=== PATIENT | female | born 1965 | race Caucasian/White ===

== ENCOUNTER 2025-01-14 22:10 | Emergency (ER) | payer MEDICARE, OTHER, SELFPAY ==
--- NOTE | 2025-01-14 22:18 | DI.RAD.S_ITS ---
PROCEDURE: XR WRIST LT MIN 3V INDICATIONS: pain fall TECHNIQUE: 4 views of the wrist were acquired. COMPARISON: None. FINDINGS: Bones: No fractures or dislocations. No suspicious bony lesions. Scaphoid appears intact. Scapholunate interval is maintained. Background degenerative changes of the left hand and wrist. Soft tissues: No suspicious soft tissue calcifications. Mild soft tissue swelling of the left hand and wrist. IMPRESSION: Soft tissue swelling of the left hand and wrist without underlying fracture or dislocation. If there is persistent clinical concern for occult fracture given adequate mechanism of injury, consider repeat imaging in 10-14 days. Immobilization as clinically indicated. Dictated by: Edil Álvarez M.D. on 01/14/2025 at 22:46 Approved by: Edil Álvarez M.D. on 01/14/2025 at 22:47
[2025-01-14 22:29] VITALS: BP 202/99; PULSE 85; RESP 24; TEMP 36.6; O2SAT 98; BMI 37.3
--- NOTE | 2025-01-14 22:31 | ED.UPPEXIN ---
HPI - Extremity Injury (Upper) General Chief Complaint: Extremity Injury, Upper Stated Complaint: fall /LT side pain Time Seen by Provider: 01/14/25 22:13 History of Present Illness HPI narrative: Patient is a 60-year-old female presenting today after ground level fall yesterday. She reports he tripped on a curb falling with her hands stretched out. She did hit her nose, no significant head injury no loss of consciousness not on antiplatelet or anticoagulation medication. She tried to be seen yesterday after her fall at another facility and said she waited for more than 2 hours and decided to leave. However tonight she is having on going left hand pain and swelling. She feels like it goes all the way down from her neck. She took both Aleve and ibuprofen prior to arrival. She has tried Tylenol at home as well he reports nothing is helping her pain. Related Data Home Medications ?Medication ?Instructions ?Recorded ?Confirmed mecobalamin (vitamin B12) PO 01/17/21 01/17/21 multivit [id number] 186 PO 01/17/21 01/17/21 [Hair, Skin and Nails Advanced] multivitamin [Daily Multivitamin] PO 01/17/21 01/17/21 zinc acetate PO 01/17/21 01/17/21 Previous Rx's ?Medication ?Instructions ?Recorded cyclobenzaprine 5 mg tablet 5 mg PO TID PRN muscle spasm #10 01/14/25 tabs hydrocodone 5 mg-acetaminophen 325 1 tab PO Q6H PRN pain #10 tabs 01/14/25 mg tablet Allergies Allergy/AdvReac Type Severity Reaction Status Date / Time codeine AdvReac Severe itching, Verified 01/14/25 22:29 feel icky Patient History Medical History Vision disorder Rheumatoid arthritis (~2016) PTSD (post-traumatic stress disorder) Anxiety (~2018) Fibromyalgia (~2014) Surgical History Anesthesia History of section (~1987) History of appendectomy (~1995) Family History Father Cancer History of heart disease Hypertension Mother Cancer Exam Initial Vital Signs Initial Vital Signs: Vital Signs Temperature 97.9 F 01/14/25 22:29 Pulse Rate 85 01/14/25 22:29 Respiratory Rate 24 01/14/25 22:29 Blood Pressure 202/99 H 01/14/25 22:29 Pulse Oximetry 98 01/14/25 22:29 Oxygen Delivery Method Room Air 01/14/25 22:29 GENERAL: Well-appearing, well-nourished and in no acute distress. HEENT: Head atraumatic,EOMI, pupils reactive, no abrasions no lacerations no contusion NECK: No vertebral tenderness no step-off she is tender laterally on the left side but not midline CARDIOVASCULAR: Regular rate and rhythm without murmurs, rubs or gallops. RESPIRATORY: Breath sounds equal bilaterally, no wheezes rales or rhonchi. EXTREMITIES: Normal range of motion, no clubbing or edema. Neurovascularly intact Left upper extremity swelling of her hand she has full flexion-extension of her wrist however with supination pronation she experiences some pain. Denies really pain that radial head or elbow. No clavicle step-off no significant shoulder pain NEUROLOGICAL: Alert and oriented x4.Normal gait and speech. Cranial nerves II through XII grossly intact. SKIN: Warm, dry, no laceration, no petechiae, no rashes or lesions. Course Orders Ordered: ED Orders 01/14/25 22:18 XR wrist LT min 3V Stat Discontinued Medications Hydrocodone Bitart/Acetaminophen (Hydrocodone/Acet 5/325 Tablet) 1 tab PO NOW ONE Stop: 01/14/25 22:19 Last Admin: 01/14/25 22:34 Dose: 1 tab Vital Signs Vital signs: Vital Signs - 8 hr 01/14/25 22:29 Temperature 97.9 F Pulse Rate 85 Respiratory Rate 24 Blood Pressure 202/99 H Pulse Oximetry 98 Oxygen Delivery Method Room Air MDM - Extremity Injury (Upper) Imaging Data Extremity x-ray #1: Radiologist's Impression: PROCEDURE: XR WRIST LT MIN 3V INDICATIONS: pain fall TECHNIQUE: 4 views of the wrist were acquired. COMPARISON: None. FINDINGS: Bones: No fractures or dislocations. No suspicious bony lesions. Scaphoid appears intact. Scapholunate interval is maintained. Background degenerative changes of the left hand and wrist. Soft tissues: No suspicious soft tissue calcifications. Mild soft tissue swelling of the left hand and wrist. IMPRESSION: Soft tissue swelling of the left hand and wrist without underlying fracture or dislocation. If there is persistent clinical concern for occult fracture given adequate mechanism of injury, consider repeat imaging in 10-14 days. Immobilization as clinically indicated. Dictated by: Edil Álvarez M.D. on 01/14/2025 at 22:46 MDM Narrative Medical decision making narrative: Patient 52-year-old female presenting today with mechanical ground level fall. The fall actually happened yesterday she is having increasing pain all along her left arm. She does have some paraspinal muscle spasms but no vertebral tenderness and full range of motion in her neck. At this time I do not think she needs any imaging of her neck. X-ray of her wrist does not show any obvious fracture. She has no pain at her elbow shoulder or clavicle I do not see any need for any further imaging at this time. She was given [place] here in the ED she took NSAIDs prior to arrival. Discharge Plan Departure Patient Disposition: Home Clinical Impression: Left wrist sprain Instructions: DI for Wrist Sprain Activity Restrictions/Additional Instructions: *You have been diagnosed with left wrist sprain *What to do: At this time increase activity as tolerated elevate and ice as needed *Continue to take medications as directed Aleve 500 mg twice a day Flexeril 5 mg every 8 hours if needed for muscle spasm [place] 1 tablet every 6 hours only if needed for severe pain *Follow up with your primary care provider in 2-3 days or call [phone] *Return to ER if you should have increasing pain numbness tingling we or any new, worsening or concerning symptoms CONTROLLED SUBSTANCE DISCHARGE (Narcotoic/benzodiazepine/Flexeril/Phenergan) 1. You have been prescribed narcotic medications, it does have acetaminophen/Tylenol/paracetamol in it, DO NOT TAKE MORE THAN 4,00mg in 24 hours of Tylenol. TRAMADOL DOES NOT CONTAIN TYLENOL 2. Please understand that we cannot provide further refills of narcotics, benzodiazepines or controlled substances through the ED and her pain management will need to be through your provider. 3. While on these medications you cannot drive or operate heavy machinery. 4. You cannot sign legal documents or perform any duties such as this. 5. As long as you're taking opiate pain medications he should also be taking a stool softener such as Colace, Dulcolax, MiraLAX or prune juice, to help avoid constipation. Prescriptions: New hydrocodone-acetaminophen 5-325 mg tablet 1 tab PO Q6H PRN (Reason: pain) Qty: 10 0RF cyclobenzaprine 5 mg tablet 5 mg PO TID PRN (Reason: muscle spasm) Qty: 10 0RF No Action mecobalamin (vitamin B12) PO zinc acetate PO multivitamin [Daily Multivitamin] PO multivit [id number] 186 [Hair, Skin and Nails Advanced] PO Stand Alone Forms: Patient Portal/API
== END 2025-01-14 23:09 | disposition home or self-care (01) ==
PROVIDERS: Emergency Provider Emergency Medicine
DX: S63.502A Unspecified sprain of left wrist, initial encounter (principal); W01.0XXA Fall on same level from slipping, tripping and stumbling without subsequent striking against object, initial encounter
CPT/HCPCS: 73110; 99283

== ENCOUNTER 2025-02-22 10:01 | Emergency (ER) | payer MEDICARE, OTHER, SELFPAY ==
--- OUTSIDE RECORDS SUMMARY | 2025-01-12 20:33 | XMS_ITS | Continuity of Care Document ---
Author Organization [facility] Notice [facility] [place] [address] Phone Care Team Providers Care Insurance Commissioner Name Role Phone Kika Albarran Primary Care Provider PHYSICIAN, ED Emergency Provider Unavailable Care Teams Patient Care Team Team Status: Active Member Role/Relationship Status Dates IRENE Patterson Primary Care Provider Active Patient Care Team Team Status: Inactive Member Role/Relationship Status Dates IRENE Patterson Primary Care Provider Active Start: January 13, 2025 End: January 13, 2025 ED PHYSICIAN Emergency Provider Active Start: No vember 2024 End: January 13, 2025 Chief Complaint and Reason for Visit Chief Complaint Admit Date BILATERAL WRIST PX January 13, 2025 1:48am Allergies, Adverse Reactions, Alerts Allergen Type Severity Reaction Last Updated Verified Status codeine Allergy Unknown Unknown January 13, 2025 2:06am Yes Active Social History Smoking Status Status Start Date End Date Date of Observa tion Smokes tobacco daily (finding) April 03, 2024 3:17pm Observation Status Observation Response Date of Response Suicide Risk Category Screening complete Pop umaña 2024 2:04am Living arrangement At home April 03, 2024 3:14pm Living Situation Other April 03, 2 025 3:14pm ETOH Use Wine April 03 3:14pm Beer April 03 3:14pm Liquor April 03 3:14pm Psychiatric Depression June 11, 2023 2:34pm Anxiety June 11, 2023 2:34pm Legal Sex Female Sex Assigned At Female January [id number] Family History Relationship Condition Age at Onset Recorded Date/T rand Unknown Neurological History?None Unknown Ap ril 2023 2:34pm Respiratory?None Unknown June 11, 2023 2:34pm Endocrine/Autoimmune?HyPOthyroidism Unkno wn June 11, 2023 2:34pm Problems Active Problems Problem Diagnosis/Recorded Date Onset Date Status C omments Alcohol dependence April 03, 2024 3:54pm Unknown Ac tive Nicotine dependence April 03, 2024 3:53pm Unknown A ctive Medication management April 03, 2024 3:52pm Unknown Active Smokes more than 1/2 pack of cigarettes per day April 03, 2024 3:53pm Unknown Active Fibromyalgia April 03, 2024 3:52pm Unknown Active Hyperlipidemia LDL goal <130 April 03, 2024 3:52pm Unk nown Active Essential hypertension April 03, 2024 3:52pm Unknown Active Adult hypothyroidism April 03, 2024 3:53pm Unknown Active Anxiety and depression April 03, 2024 3:54pm Unknown Active Noncompliance with medicatio n regimen April 03, 2024 3:52pm Unknown Active Inactive/Resolved Problems Problem Diagnosis/Recorded Date Onset Date Status C omments Knee strain December 23, 2016 12:39pm Unknown Resolved Problem List clean-up per request of Phys. EHR Cmte Pleuritic chest pain January 15, 2019 6:34pm Unknown Resolved Problem List clean-up per request of Phys. EHR Cmte Back strain December 23, 2016 12:39pm Unknown Resolved Problem List clean-up per request of Phys. EHR Cmte Wrist pain January 13, 2025 2:48am Unknown Resolved Upper respiratory tract infection January 15, 2019 6:34pm Unknown Resolved Probl em List clean-up per request of Phys. EHR Cmte S/P foot surgery, right October 20, 2016 3:09pm Unknown Resolved Problem List clean-up per request of Phys. EHR Cmte Second degree burn of left hand June 11, 2023 2:34pm Unknown Resolved Left knee pain October 20, 2016 3:06pm Unknown Resolve d Problem List clean-up per request of Phys. EHR Cmte Viral URI January 12, 2019 4:30pm Unknown Resolved Problem List clean-up per request of Phys. EHR Cmte History of adenomatous polyp of colon January 08, 2023 11:52am Unknown Resolved Probl em List clean-up per request of Phys. EHR Cmte Nausea & vomiting November 23, 2019 2:49am Unknown R esolved Problem List clean-up per request of Phys. EHR Cmte Sprain of right foot October 20, 2016 3:06pm Unknown R esolved Problem List clean-up per request of Phys. EHR Cmte Medications Medication Status Dose Units Route Directions Qty Days Refills S tart Date Stop Date End Date Reason(s) Instructions Adherence Rosuvastati n (Crestor) 10 mg tablet Active 10 MG PO BEDTIME 90 0 Decemb er 2023 4:43pm PT DOESNT TAKE ALL THE TIME Unknown Levothyroxi ne (Synthroid) 150 mcg tablet Active 150 MCG PO DAILY 90 3 June 07, 2024 7:07am PT DOES NOT TAKE ALL THE TIME Unknown Albuterol Sulfate 90 mcg/actuati on HFA aerosol inhaler Active 0 .ROUTE .COMPLEX 8.5 2 June 21, 2024 7:11am INHALE 2 PUFFS BY MOUTH EVERY 4 HOURS DIRECTED FOR COUGH OR WHEEZING Unknown Ibuprofen 600 MG tablet Discont inued 600 MG PO DAILY October 19, 2016 11:00p m Oct er 2016 11:27 am Hydrocodone -Acetaminop hen 1 TAB tablet Discont inued 1 - 2 EACH PO Q6H as needed for Pain 20 0 October 19, 2016 11:00p m Octob er 2016 11:27 am Meloxicam 7.5 MG tablet Discont inued 7.5 MG PO TWICE A DAY as needed for pain 20 0 Octobe r 2016 11:00p m [facility] 2022 1:01p m Cyclobenzap rine 10 MG tablet Discont inued 10 MG PO THREE TIMES A DAY as needed for Spasms 20 0 Octobe r 2016 12:45p m [facility] 2022 1:01p m Prednisone 10 MG tablet Discont inued 10 MG PO 10 DAY TAPER 42 0 Novemb er 2018 12:00a m [facility] 2022 12:58 pm Day 1-4: Take 60mg (6 tablets) daily; Day 5-7: Take 40mg (4 tablets) daily; Day 8-10: Take 20mg (2 tablets) daily Meloxicam (Mobic) 15 MG tablet Discont inued 15 MG PO DAILY as needed for pain 20 0 Novemb er 2018 12:00a m [facility] 2022 1:01p m Benzonatate (Tessalon Perle) 100 MG capsule Discont inued 100 - 200 MG PO THREE TIMES A DAY as needed for Cough 30 0 Novemb er 2018 12:00a m [facility] 2022 1:01p m Albuterol Sulfate (Ventolin Hfa) 200 PUFFS/18 GM HFA aerosol inhaler Discont inued 1 - 2 PUFFS INH EVERY 4 HOURS as needed for Shortness Of Air/Wheezin g 1 0 Novemb er 2018 12:00a m [facility] 2022 1:01p m Oxycodone-A cetaminophe n (Percocet 5-325 Mg Tablet) 1 EACH tablet Discont inued 1 - 2 EACH PO Q6H as needed for pain 18 0 Novemb er 2018 12:00a m [facility] 2022 1:00p m Benzonatate (Tessalon Perle) 100 MG capsule Discont inued 100 - 200 MG PO THREE TIMES A DAY as needed for Cough 30 0 Novemb er 2018 12:00a m [facility] 2022 1:01p m Tizanidine 4 MG capsule Discont inued 4 MG PO THREE TIMES A DAY as needed for Spasms 20 0 Novemb er 2018 12:00a m [facility] 2022 1:00p m Doxycycline Monohydrate 100 MG tablet Discont inued 100 MG PO TWICE A DAY 14 0 Novemb er 2018 12:00a m [facility] 2022 1:01p m Ondansetron 4 MG tablet,disi ntegrating Discont inued 4 MG PO EVERY 6 HOURS as needed for Nausea / Vomiting 10 0 Septem romain 2019 2:47am [facility] 2022 1:01p m Levothyroxi ne (Synthroid) 150 MCG tablet Discont inued 150 MCG PO DAILY June 10, 2023 11:00p m June 07, 2024 7:07a m PT DOES NOT TAKE ALL THE TIME Losartan 100 MG tablet Active 100 MG PO DAILY June 10, 2023 11:00p m PT DOES NOT TAKE ALL THE TIME Unknown Rosuvastati n (Crestor) 10 MG tablet Discont inued 10 MG PO BEDTIME June 10, 2023 11:00p m Decem romain 2023 4:43p m PT DOESNT TAKE ALL THE TIME Duloxetine 30 MG capsule,del ayed release(DR/ EC) Active 30 MG PO DAILY June 10, 2023 11:00p m PT DOES NOT TAKE ALL THE TIME Unknown Albuterol Sulfate (Proair Digihaler) 90 MCG aero powdr breath act w/sensor Discont inued 1 - 2 PUFFS INH EVERY 4 HOURS as needed for SOA June 10, 2023 11:00p m June 21, 2024 7:11a m PT DOES NOT TAKE ALL THE TIME Bacitracin Zinc 28.4 GM ointment Active 1 APPLIC TOP TWICE A DAY 1 0 June 10, 2023 11:00p m PT DOES NOT TAKE ALL THE TIME Unknown Procedures Procedure Date Performed Status XR Forearm BL January 13, 2025 2:09am compl eted XR Wrist 1-2V BL January 13, 2025 2:09am comp leted Vital Signs Vital Reading Result Reference Range Collection Date/Time Height 66 [in_i] January 13, 2025 2:04am Weight 106.59 kg January 13, 2025 2:04am Body Temperature 36.2 Arlette 36.5-37.9 January 132024 2:04am Heart Rate 86 /min 60-100 January 13, 2025 2:04am Respiratory rate 18 /min 12-24 January 132024 2:04am Oxygen saturation by Pulse oximetry 98 % 92-100 January 13, 2025 2:04am BP Systolic 165 mm[Hg] 90-130 January 13, 2025 2:04am BP Diastolic 89 mm[Hg] 60-90 January 13, 2025 2:04am BMI (Body Mass Index) 37.9 kg/m2 Novemb 2024 2:04am Advance Directives Advance Directive Response Recorded Date/ Time Advance Directives No September 20 2:13pm Advance Directives Information Provided No September 20, 2022 2:13pm Insurance Providers Guarantor RYAN Dempsey [facility] Address [address] [facility] [address] Contact Info. Home Phone: Coverage Status Update:2025 Payer Group Member ID Coverage Type Subscriber Relationship to Subscriber Effective Date Expiration Date [employer] [id number] null RYAN BURTON Id: [id number] Self Medicaid [id number] [place] Id: [id number] null RYAN BURTON Id: [id number] [address] [facility] [address] Home Phone: Email: [email or web address] Self [facility] [phone] null RYAN BURTON Id: [id number] [address] [facility] [address] Home Phone: Email: [email or web address] Self 2022 Encounters Encounter Location(s) Arrival/Admit Date Discharge/Departure Date Discharge/Departure Disposition Provider(s) Departed Emergency -Emergency Department January 13, 2025 1:48am January 13, 2025 4:31am Left against medical advice or discontinued care Mental Status Observation Response Date Recorded Neurological WDL Yes January 13, 2025 2:48am Cognitive/Mental Status Assessments
[2025-02-22 10:07] VITALS: BP 141/82; PULSE 92; RESP 16; TEMP 36.9; O2SAT 96; BMI 37.1
--- NOTE | 2025-02-22 10:14 | DI.CT.S_ITS ---
PROCEDURE: CT ABDOMEN PELVIS W CON INDICATIONS: R sided abd pain TECHNIQUE: After the administration of intravenous contrast, axial sections acquired from the lung bases to the pubic symphysis. Coronal and sagittal reformats were performed. For radiation dose reduction, the following was used: automated exposure control, adjustment of mA and/or kV according to patient size. COMPARISON: None. FINDINGS: Image quality: Diagnostic. Lower Chest: No significant findings. ABDOMEN: Liver: Diffuse hepatic steatosis with fatty sparing along the 1 gallbladder fossa. Gallbladder: No radiopaque gallstones or wall thickening. Biliary ducts: No biliary dilation. Pancreas: No ductal dilation. Spleen: Size is within normal limits. Adrenal Glands: No adrenal nodules. Kidneys and Ureters: No hydronephrosis. No solid mass. No complex renal cystic lesion which requires follow up. Stomach and Bowel: Mild mural thickening of the terminal ileum.. Nonvisualized appendix, reported history of appendectomy. Diverticulosis without diverticulitis. Peritoneum: No abnormal intraperitoneal fluid. No free air. Ventral Wall: No significant ventral hernia. Abdominal Nodes: No retroperitoneal or mesenteric adenopathy by size criteria. Vessels: Aorta and inferior vena cava are normal in size. PELVIS: Pelvic Organs: Unremarkable. Bladder: No bladder wall thickening, accounting for underdistention. Pelvic Nodes: No enlarged lymph nodes. Miscellaneous: No inguinal hernias are seen. Bones: No aggressive osseous abnormality. Multilevel degenerative disc disease in the lumbar spine.1 IMPRESSION: Mural thickening of the terminal ileum at the IC valve, correlate for terminal ileitis. Dictated by: Ricky Dunn M.D. on 02/22/2025 at 12:20 Approved by: Ricky Dunn M.D. on 02/22/2025 at 12:22
--- NOTE | 2025-02-22 10:16 | ED.ABDPAIN ---
HPI - Abdominal Pain General Chief Complaint: Upper Respiratory Symptoms Stated Complaint: Has cold, pain RT upper abd Time Seen by Provider: 02/22/25 10:03 Source: patient Mode of arrival: Family Vehicle History of Present Illness HPI narrative: 60-year-old female history of and appendectomy smoker presents with cough with sputum production, shortness breath, wheezing, along with right-sided abdominal pain for which she reports being constipated and taking some stool softeners but worse today. Patient denies any chest pain, back pain, urinary complaints, rectal bleeding, but does endorse fever, chills, body aches, and congestion. Other than what is stated 14 point review of system is negative. Related Data Home Medications ?Medication ?Instructions ?Recorded ?Confirmed mecobalamin (vitamin B12) PO 01/17/21 01/17/21 multivit [id number] 186 PO 01/17/21 01/17/21 [Hair, Skin and Nails Advanced] multivitamin [Daily Multivitamin] PO 01/17/21 01/17/21 zinc acetate PO 01/17/21 01/17/21 Previous Rx's ?Medication ?Instructions ?Recorded cyclobenzaprine 5 mg tablet 5 mg PO TID PRN muscle spasm #10 01/14/25 tabs hydrocodone 5 mg-acetaminophen 325 1 tab PO Q6H PRN pain #10 tabs 01/14/25 mg tablet albuterol sulfate 90 mcg/actuation 2 inh inhalation Q4-6H PRN 02/22/25 breath activated powder inhaler shortness of breath #1 ea hydrocodone 5 mg-acetaminophen 325 1 tab PO Q4-6H PRN pain #20 tabs 02/22/25 mg tablet potassium chloride 20 mEq oral 20 meq PO BID #6 ea 02/22/25 packet prednisone 20 mg tablet 20 mg PO BID #10 tabs 02/22/25 Allergies Allergy/AdvReac Type Severity Reaction Status Date / Time codeine AdvReac Severe itching, Verified 01/14/25 22:29 feel icky Review of Systems Review of Systems ROS Unobtainable: All systems reviewed & are unremarkable except as noted in HPI and below Patient History Medical History Vision disorder Rheumatoid arthritis (~2016) PTSD (post-traumatic stress disorder) Anxiety (~2018) Fibromyalgia (~2014) Surgical History Anesthesia History of section (~1987) History of appendectomy (~1995) Family History Father Cancer History of heart disease Hypertension Mother Cancer Exam Narrative Exam Narrative: GENERAL: [60] year old patient appears stated age. Well-developed patient, in mild distress. HEAD: Atraumatic. Normocephalic. EYES: Pupils equal round and reactive. Extraocular motions intact. No scleral icterus. No injection or drainage. ENT: Nose without bleeding, purulent drainage. Throat without erythema, tonsillar hypertrophy or exudate. Airway patent. NECK: Trachea midline. Non tender CARDIOVASCULAR: Regular rate and rhythm without murmurs, gallops, or rubs. RESPIRATORY: Diffuse wheezing throughout GASTROINTESTINAL: Abdomen soft, non-tender, nondistended. EXTREMITIES: No edema or joint tenderness. BACK: Nontender without deformity or crepitance. No flank tenderness. NEURO: AOx3. SKIN: No rash or erythema of visible areas Initial Vital Signs Initial Vital Signs: Vital Signs Temperature 98.5 F 02/22/25 10:07 Pulse Rate 92 H 02/22/25 10:07 Respiratory Rate 16 02/22/25 10:07 Blood Pressure 141/82 H 02/22/25 10:07 Pulse Oximetry 96 02/22/25 10:07 Oxygen Delivery Method Room Air 02/22/25 10:07 Course Orders Ordered: ED Orders 02/22/25 10:14 CT abdomen pelvis w con Stat Covid-19 + FLU A/B + RSV - PCR Stat 02/22/25 10:15 Complete Blood Count AUTO DIFF Stat Comprehensive Metabolic Panel Stat Lipase Stat Ondansetron HCl (Ondansetron 4 Mg/2 Ml Inj) 4 mg IV NOW PRN PRN Reason: Nausea And Vomiting Ondansetron HCl (Ondansetron 4 Mg Odt) 4 mg PO NOW PRN PRN Reason: Nausea And Vomiting Discontinued Medications Albuterol/Ipratropium (Albuterol/Ipratropium 3 Ml Ampul) 3 ml INH NOW ONE Stop: 02/22/25 10:15 Methylprednisolone (Methylprednisolone Succ 125 Mg/2 Ml Vial) 125 mg IV NOW ONE Stop: 02/22/25 10:15 Vital Signs Vital signs: Vital Signs - 8 hr 02/22/25 10:07 Temperature 98.5 F Pulse Rate 92 H Respiratory Rate 16 Blood Pressure 141/82 H Pulse Oximetry 96 Oxygen Delivery Method Room Air MDM - Abdominal Pain Imaging Data CT scan - abdomen/pelvis: Radiologist's Impression: [address] [address] [address] Scan Report Signed Patient: Leonarda Duke MR#: [id number] : 1965 Acct:[id number] Age/Sex: 60 / F Date of Service: 02/22/25 Loc: ED Accession Number: [id number] Procedure: CT abdomen pelvis w con Ordering Provider: Jose Marie D.O. PROCEDURE: CT ABDOMEN PELVIS W CON INDICATIONS: R sided abd pain TECHNIQUE: After the administration of intravenous contrast, axial sections acquired from the lung bases to the pubic symphysis. Coronal and sagittal reformats were performed. For radiation dose reduction, the following was used: automated exposure control, adjustment of mA and/or kV according to patient size. COMPARISON: None. FINDINGS: Image quality: Diagnostic. Lower Chest: No significant findings. ABDOMEN: Liver: Diffuse hepatic steatosis with fatty sparing along the 1 gallbladder fossa. Gallbladder: No radiopaque gallstones or wall thickening. Biliary ducts: No biliary dilation. Pancreas: No ductal dilation. Spleen: Size is within normal limits. Adrenal Glands: No adrenal nodules. Kidneys and Ureters: No hydronephrosis. No solid mass. No complex renal cystic lesion which requires follow up. Stomach and Bowel: Mild mural thickening of the terminal ileum.. Nonvisualized appendix, reported history of appendectomy. Diverticulosis without diverticulitis. Peritoneum: No abnormal intraperitoneal fluid. No free air. Ventral Wall: No significant ventral hernia. Abdominal Nodes: No retroperitoneal or mesenteric adenopathy by size criteria. Vessels: Aorta and inferior vena cava are normal in size. PELVIS: Pelvic Organs: Unremarkable. Bladder: No bladder wall thickening, accounting for underdistention. Pelvic Nodes: No enlarged lymph nodes. Miscellaneous: No inguinal hernias are seen. Bones: No aggressive osseous abnormality. Multilevel degenerative disc disease in the lumbar spine.1 IMPRESSION: Mural thickening of the terminal ileum at the IC valve, correlate for terminal ileitis. Dictated by: Ricky Dunn M.D. on 02/22/2025 at 12:20 Approved by: Ricky Dunn M.D. on 02/22/2025 at 12:22 ECG Data Interpretation: Sinus Tach HR 89 NV 142 QRS [address]-t wave change No previous EKG to compare MDM Narrative Medical decision making narrative: All lab work, vital signs, nurse triage note, medication list, previous ER visits, and all imaging studies reviewed. CT scan showed mural thickening of the terminal ileum at the IC valve correlate for terminal ileitis. Patient given DuoNebs steroids will be discharged on prednisone [place] clear liquid diet and to follow up with PCP this coming week. Differential diagnosis COVID flu RSV pneumonia diverticulitis constipation. Discharge Plan Departure Patient Disposition: Home Clinical Impression: Hypokalemia, Respiratory syncytial virus (RSV), Ileitis, terminal Instructions: DI for Respiratory Syncytial Virus -- Adults Activity Restrictions/Additional Instructions: Return with new or worsening symptoms. Follow up with PCP 1-2 weeks if no improvement in symptoms. Take medication as directed. Prescriptions: New prednisone 20 mg tablet 20 mg PO BID Qty: 10 0RF albuterol sulfate 90 mcg/actuation aerosol powdr breath activated 2 inh inhalation Q4-6H PRN (Reason: shortness of breath) Qty: 1 0RF potassium chloride 20 mEq packet 20 meq PO BID Qty: 6 0RF hydrocodone-acetaminophen 5-325 mg tablet 1 tab PO Q4-6H PRN (Reason: pain) Qty: 20 0RF No Action mecobalamin (vitamin B12) PO zinc acetate PO multivitamin [Daily Multivitamin] PO multivit [id number] 186 [Hair, Skin and Nails Advanced] PO hydrocodone-acetaminophen 5-325 mg tablet 1 tab PO Q6H PRN (Reason: pain) Qty: 10 0RF cyclobenzaprine 5 mg tablet 5 mg PO TID PRN (Reason: muscle spasm) Qty: 10 0RF Stand Alone Forms: Patient Portal/API
[2025-02-22] MEDS: ALBUTEROL/IPRATROPIUM 3 ML AMPUL INH ×2 (10:24)
[2025-02-22 10:29] VITALS: RESP 18
[2025-02-22] MEDS: methylPREDNISolone succ 125 MG/2 ML VIAL IV (10:35)
--- NOTE | 2025-02-22 10:38 | EKG_ITS ---
[facility] [address] [place] [address] Test Date: 2025-02-22 Pat Name: Leonarda Duke Department: [facility] Room: Gender: Female Frontend Engineer: NICOLE : 1965 Requested By: Order Number: [id number] Reading MD: Jose Abdul MD Measurements Intervals [place] Rate: 89 P: 65 VT: 142 QRS: 10 QRSD: 92 T: 82 QT: 468 QTc: 569 Interpretive Statements Critical Test Result: Long QTc Normal sinus rhythm Nonspecific ST and T wave abnormality Prolonged QT NO PRIOR TRACING Electronically Signed On 02-22-2025 11:30:03 PST by Jose Abdul MD
[2025-02-22 10:47] LABS: Add Manual Diff / Slide Review NO; Hematocrit 39.9 % (36-46); Hemoglobin 13.9 g/dL (12.0-16.0); Lymphocytes Absolute Auto 2500 /uL (1100-4500); Mean Corpuscular HGB Conc 34.8 % (30-36); Mean Corpuscular Hemoglobin 32.4 PG (26-34); Mean Corpuscular Volume 93.1 fL (80-100); Platelet Count 305 X10^3/uL (150-400)
[2025-02-22 10:59] LABS: Alanine Aminotransferase 32 IU/L (<35); Albumin 5.2 g/dL (3.5-5.0); Albumin Globulin Ratio 1.4 (1.0-2.8); Alkaline Phosphatase 85 U/L (38-126); Blood Urea Nitrogen 11 mg/dL (7-17); Calcium 10.2 mg/dL (8.4-10.2); Carbon Dioxide 25 mmol/L (22-32); Chloride 97 mmol/L (98-107); Estimated Glomerular Filt Rate > 60 mL/min (>60); Globulin 3.6 g/dL (1.7-4.1); Glucose 118 mg/dL (70-99); HEMOLYSIS < 15 (0-50); Lipase 69 U/L (23-300); Potassium 2.9 mmol/L (3.4-5.1); Sodium 137 mmol/L (137-145); Total Protein 8.8 g/dL (6.3-8.2)
[2025-02-22 11:26] LABS: Influenza A - CEPHEID Flu A NEGATIVE (NEGATIVE); Influenza B - CEPHEID Flu B NEGATIVE (NEGATIVE)
[2025-02-22 11:34] LABS: COVID-19 CEPHEID 4-PLEX PCR Negative (Negative)
[2025-02-22] MEDS: POTASSIUM CHLORIDE 20 MEQ/15 ML UDC 40 MEQ PO (12:30)
[2025-02-22 12:48] VITALS: BP 181/87; PULSE 87; RESP 16; O2SAT 97
== END 2025-02-22 12:49 | disposition home or self-care (01) ==
PROVIDERS: Emergency Provider Family Medicine
DX: E87.6 Hypokalemia (principal); B97.4 Respiratory syncytial virus as the cause of diseases classified elsewhere; K52.9 Noninfective gastroenteritis and colitis, unspecified; R05.9 Cough, unspecified; R06.2 Wheezing; K59.00 Constipation, unspecified; R10.11 Right upper quadrant pain
CPT/HCPCS: 36415; 74177; 80053; 83690; 85025; 87637; 93005; 94640; 96374; 99284; J2919; Q9967